=== PATIENT | male | born 1990 | race Caucasian/White ===

== ENCOUNTER 2022-10-25 18:55 | Emergency (ER) | payer BC, SELFPAY ==
[2022-10-25 19:09] VITALS: BP 111/65; PULSE 102; RESP 16; TEMP 37.3; O2SAT 96
--- NOTE | 2022-10-25 19:30 | DI.RAD_ITS ---
Exam(s) XR WRIST LT COMPLETE EXAM: XR WRIST LT COMPLETE CLINICAL HISTORY: fall. TECHNIQUE: 2D digital imaging was performed. COMPARISON: No exams were available for comparison FINDINGS: 3 views There is a fracture of the distal radius which violates the radiocarpal joint surface, medially. The re is also a nondisplaced fracture of the base of the ulnar styloid. No significant ulnar variance. There is no obvious scaphoid fracture. IMPRESSION: Fractures of the distal radius and ulnar styloid as described above. DATA REPOSITORY: RADIATION DOSE DELIVERED:
--- NOTE | 2022-10-25 19:30 | DI.RAD_ITS ---
Exam(s) XR KNEE LT 4V AP,LAT,RIO,PAT EXAM: XR KNEE LT 4V AP,LAT,RIO,PAT CLINICAL HISTORY: fall, dislocated patella. TECHNIQUE: 2D digital imaging was performed. COMPARISON: No exams were available for comparison FINDINGS: Four views No evidence of acute fracture or dislocation. However, there is a large joint effusion noted. Signi fies internal derangement. No joint space narrowing. Tibial plateau appears intact. No patellar di splacement. IMPRESSION: No acute osseous findings but there is a large joint effusion signifying internal derangement. DATA REPOSITORY: RADIATION DOSE DELIVERED:
--- NOTE | 2022-10-25 21:06 | DI.VRAD_ITS ---
PROCEDURE INFORMATION: Exam: XR Left Wrist Exam date and time: 10/25/2022 8:27 PM Age: 32 years old Clinical indication: Other: Fall TECHNIQUE: Imaging protocol: Radiologic exam of the left wrist. Views: 3 or more views. COMPARISON: No relevant prior studies available. FINDINGS: Bones/joints: Nondisplaced fracture of the styloid process of the left ulna. Fracture of the distal radius involves medial aspect with the fracture line extending to articular surface. Soft tissues: Mild soft tissue swelling. IMPRESSION: Fractures of styloid process of the ulna and distal radius. Dictated and Authenticated by: Evan Tracy MD. Ordering:SHADE Loyd MD
--- NOTE | 2022-10-25 21:09 | DI.VRAD_ITS ---
PROCEDURE INFORMATION: Exam: XR Left Knee Exam date and time: 10/25/2022 8:15 PM Age: 32 years old Clinical indication: Other: Fall, dislocated patella TECHNIQUE: Imaging protocol: Radiologic exam of the left knee. Views: 4 or more views. COMPARISON: No relevant prior studies available. FINDINGS: Bones/joints: Large suprapatellar effusion. No displaced fractures or dislocations. Suggestion of mild widening of the space within anterior compartment. Soft tissues: Grossly unremarkable. IMPRESSION: No displaced fractures or dislocations. Large suprapatellar effusion. Dictated and Authenticated by: Evan Tracy MD. Ordering:SHADE Loyd MD
--- NOTE | 2022-10-25 21:14 | W.ED.GENAD ---
Discharge Plan Disposition Patient Disposition: Home Discharge Details Clinical Impression: Dislocation of patella, left, closed, Fracture of distal end of left radius and ulna Primary Care Provider: Unknown,Unknown ED Provider: Evert Fox Home Meds and New Rx's Prescriptions: No Action No Known Home Meds Discharge Instructions Instructions: Wrist Fracture in Adults (ED), Patellar Dislocation (ED), Knee Immobilizer (ED) Additional Instructions: You may continue use of [id number] acetaminophen or ibuprofen as needed for pain control. Please keep splinting on until you see orthopedist which it is recommended that you call their office tomorrow afternoon for arrangement of follow-up appointment. Return the emergency department for any new or significant worsening symptoms such as severe uncontrollable pain, or any further concern. While you have been given crutches you may perform weightbearing as tolerated as long as the knee immobilizer is in place. Referrals: [facility] [Provider Group] (Call the office tomorrow afternoon for arrangement of follow-up appointment) Discharge Data Discharge Date/Time-TO BE ENTERED AT DEPARTURE: 10/25/22 22:08 Medical Decision Making Patient presenting to the emergency department for chief complaint of trip and fall. Patient states he jumped up and landed funny causing his left kneecap to dislocate. He also injured his wrist in the fall. He stated he was able to push his knee Over into correct placement and can perform some weightbearing activities. Patient denies any other injury or trauma beyond his left knee and left wrist. Physical exam shows significant diffuse swelling of the left knee with moderate swelling to the patella. Patient does have leg extension intact and no noted injury distal to the knee. Left wrist does have some range of motion present but patient states moderate amount of pain. There is both distal ulnar and distal radius dorsal pain to palpation. We will perform radiological imaging. Just prior to arrival patient states taking 800mg of ibuprofen and reports no need of pain medication at this time. Review of radiological imaging and radiologist interpretation shows significant effusion but no other acute findings noted to left knee. Patient does have a distal radius and ulnar styloid fracture. Patient was placed in a knee immobilizer and will use 1 crutch given that the wrist is also fracture. Patient placed in sugar-tong splint. Placement paced on the Ortho follow-up list. After discussion of diagnosis and plan of care patient has no further needs, questions, or concerns and states clear understanding to return to the emergency department for any worsening symptoms. This documentation was generated using [employer] dictation system, please disregard any oddities of phrase or misspellings. Imaging Data Radiologic Study: Imaging: X-Ray Radiologist's impression: Exam(s) PROCEDURE INFORMATION: Exam: XR Left Wrist Exam date and time: 10/25/2022 8:27 PM Age: 32 years old Clinical indication: Other: Fall TECHNIQUE: Imaging protocol: Radiologic exam of the left wrist. Views: 3 or more views. COMPARISON: No relevant prior studies available. FINDINGS: Bones/joints: Nondisplaced fracture of the styloid process of the left ulna. Fracture of the distal radius involves medial aspect with the fracture line extending to articular surface. Soft tissues: Mild soft tissue swelling. IMPRESSION: Fractures of styloid process of the ulna and distal radius. Radiologic Study #2: Imaging: X-Ray Radiologist's impression: Exam(s) PROCEDURE INFORMATION: Exam: XR Left Knee Exam date and time: 10/25/2022 8:15 PM Age: 32 years old Clinical indication: Other: Fall, dislocated patella TECHNIQUE: Imaging protocol: Radiologic exam of the left knee. Views: 4 or more views. COMPARISON: No relevant prior studies available. FINDINGS: Bones/joints: Large suprapatellar effusion. No displaced fractures or dislocations. Suggestion of mild widening of the space within anterior compartment. Soft tissues: Grossly unremarkable. IMPRESSION: No displaced fractures or dislocations. Large suprapatellar effusion. HPI General Mode of arrival: wheelchair. Date/Time Provider Initiated Documentation: 10/25/22 19:22. Limitations to Documentation: no limitations. Information obtained by: patient and RN notes reviewed. History of Present Illness 32 year old M presents to the emergency department with the chief complaint of Left knee and wrist injury, described as moderate, and is localized to the left, upper extremity and lower extremity. Patient started experiencing this hour(s) (1) and it has been constant. No relieving factors improve symptom(s), Movement worsens symptoms . Patient notes no other symptoms.. Patient did receive the following treatments prior to arrival, NSAID Related Data Home Medications Medication Instructions Recorded Confirmed Unknown [No Known Home Meds] 10/25/22 10/25/22 Allergies Allergy/AdvReac Type Severity Reaction Status Date / Time No Known Allergies Allergy Unverified 10/25/22 21:06 General Stated Complaint: Orthopedic DAR: 3 Review of Systems Narrative: 6 systems reviewed and unremarkable except what is marked below. Musculoskeletal Musculoskeletal: Reports as per HPI, Reports arthralgias, Reports joint swelling and Reports limited range of motion Integumentary/Breasts Skin/Breast: Denies wounds Neurologic Neurologic: Denies paresthesias PFSH All Active Problems Dislocation of patella, left, closed (Acute) Fracture of distal end of left radius and ulna (Acute) Social History Smoking/Tobacco Use Status: Never Smoking risk assessment performed?: Yes Alcohol Intake: current Do you feel safe at home: Yes Do you feel safe in your relationship?: Yes Exam Const General: cooperative, no acute distress and not ill appearing Orientation: alert, awake and oriented x3 HENMT Mouth: moist mucous membranes Resp Effort & Inspection: normal respiratory effort, able to speak in complete sentences and no respiratory distress Cardio Rate: regular rate Rhythm: regular rhythm Pulses: normal peripheral pulses Skin General skin exam: no rashes or lesions noted Neuro General: patient alert, patient awake, patient oriented x3, moves all extremities and no focal motor deficits Sensory Exam: no sensory deficits noted Extrem General: normal exam except as noted Left upper extremity: wrist Details: tenderness Location: of the distal radius, of the distal ulna and of the dorsal wrist; not of the anatomic snuffbox, swelling Location: of the dorsal wrist, abnormal ROM Details: pain with active ROM and pain with passive ROM, normal vascular exam and radial pulse present; no abrasions, no lacerations, no ecchymosis and no deformity Left lower extremity: knee Details: tenderness Location: of the patella, swelling Location: of the patella and of the infrapatellar area, abnormal ROM Details: pain with active ROM Details: with extension and with flexion; able to extend lower leg actively and knee ligament exam abnormal (Difficult to perform due to pain) Course Vital Signs Vital signs: Vital Signs Temperature 37.3 C 10/25/22 19:09 Pulse 102 H 10/25/22 19:09 Respiratory Rate 16 10/25/22 19:09 Blood Pressure 111/65 10/25/22 19:09 Pulse Oximetry 96 10/25/22 19:09 Temperature 37.3 C 10/25/22 19:09 Pulse 102 H 10/25/22 19:09 Respiratory Rate 16 10/25/22 19:09 Respiratory Effort Normal 10/25/22 19:12 Blood Pressure 111/65 10/25/22 19:09 Pulse Oximetry 96 10/25/22 19:09 Oxygen Delivery Method Room Air 10/25/22 19:09 Oxygen Flow Rate 0 10/25/22 19:09 Pain Level 2 10/25/22 19:09
== END 2022-10-25 22:08 | disposition home or self-care (01) ==
PROVIDERS: Emergency Provider Nurse Practitioner Family
DX: S52.602A Unspecified fracture of lower end of left ulna, initial encounter for closed fracture (principal); S52.502A Unspecified fracture of the lower end of left radius, initial encounter for closed fracture; S83.005A Unspecified dislocation of left patella, initial encounter; W17.89XA Other fall from one level to another, initial encounter
CPT/HCPCS: 29505; 99284; 73110; 73564

== ENCOUNTER 2022-11-02 09:21 | Outpatient (CLI) | payer BC, SELFPAY ==
--- NOTE | 2022-11-02 09:25 | DI.RAD_ITS ---
Exam(s) XR WRIST LT LIMITED EXAM: XR WRIST LT LIMITED CLINICAL HISTORY: left wrist fracture. TECHNIQUE: 2D digital imaging was performed of the left wrist. Two images were obtained. PA and la teral views were obtained. COMPARISON: CR,XR XR WRIST LT COMPLETE from 10/25/2022 FINDINGS: BONES: There has been no change in alignment of the intra-articular fracture of the distal radius. T here is also mildly displaced ulnar styloid process fracture. No new fracture is seen. No bony dest ructive lesion is seen. JOINTS: The carpal bones are normally aligned. The joint spaces are otherwise well maintained. SOFT TISSUE: Normal. IMPRESSION: Stable distal radial and ulnar fractures. DATA REPOSITORY: RADIATION DOSE DELIVERED:
== END 2022-11-02 09:22 | disposition home or self-care (01) ==
LOC: DIORS 09:21
PROVIDERS: Visit Provider Physician Assistant
DX: S52.571D Other intraarticular fracture of lower end of right radius, subsequent encounter for closed fracture with routine healing (principal); S52.611D Displaced fracture of right ulna styloid process, subsequent encounter for closed fracture with routine healing; X58.XXXD Exposure to other specified factors, subsequent encounter
CPT/HCPCS: 73100

== ENCOUNTER 2022-11-09 09:54 | Outpatient (CLI) | payer BC, SELFPAY ==
--- NOTE | 2022-11-09 09:15 | DI.RAD_ITS ---
Exam(s) XR WRIST LT LIMITED EXAM: XR WRIST LT LIMITED CLINICAL HISTORY: wrist fx f/u. TECHNIQUE: 2D digital imaging was performed of the left wrist. Two images were obtained. PA and la teral views were obtained. COMPARISON: CR,XR XR WRIST LT COMPLETE from 10/25/2022 CR XR WRIST LT LIMITED from 11/02/2022 FINDINGS: BONES: There has been no change in alignment of the distal radial fracture. There has been mild dist raction of the ulnar styloid process fracture. No bony destructive lesion is seen. JOINTS: The carpal bones are normally aligned. SOFT TISSUE: Normal. IMPRESSION: 1. Stable distal radial fracture. 2. Interval mild distraction of the ulnar styloid process fracture. DATA REPOSITORY: RADIATION DOSE DELIVERED:
== END 2022-11-09 09:55 | disposition home or self-care (01) ==
LOC: DIORS 09:54
PROVIDERS: Visit Provider Student in an Organized Health Care Education/Training Program
DX: S52.571D Other intraarticular fracture of lower end of right radius, subsequent encounter for closed fracture with routine healing; S52.611D Displaced fracture of right ulna styloid process, subsequent encounter for closed fracture with routine healing; X58.XXXD Exposure to other specified factors, subsequent encounter
CPT/HCPCS: 73100

== ENCOUNTER 2022-12-07 08:12 | Outpatient (CLI) | payer BC, SELFPAY ==
--- NOTE | 2022-12-07 08:41 | DI.RAD_ITS ---
Exam(s) XR WRIST LT LIMITED EXAM: XR WRIST LT LIMITED CLINICAL HISTORY: fx, stiffness. TECHNIQUE: 2D digital imaging was performed of the left wrist. Two images were obtained. PA and la teral views were obtained. COMPARISON: CR XR WRIST LT LIMITED from 11/09/2022 FINDINGS: BONES: There is continued healing of the distal radial fracture. No change in alignment is noted. T here is no change in alignment of the ulnar styloid process fracture. No bony destructive lesion is seen. JOINTS: The carpal bones are normally aligned. SOFT TISSUE: Normal. IMPRESSION: Stable distal radial and ulnar fractures. DATA REPOSITORY: RADIATION DOSE DELIVERED:
== END 2022-12-07 08:13 | disposition home or self-care (01) ==
LOC: DIORS 08:12
PROVIDERS: Visit Provider Physician Assistant
DX: S52.252A Displaced comminuted fracture of shaft of ulna, left arm, initial encounter for closed fracture (principal); X58.XXXA Exposure to other specified factors, initial encounter
CPT/HCPCS: 73100